=== PATIENT | male | born 1990 | race Caucasian/White ===

== ENCOUNTER 2018-02-28 14:43 | Inpatient (IN) | payer MEDICAID, OTHER, SELFPAY ==
[~2018-02-28] VITALS: Ht 177.8 cm; Wt 62.5 kg
[2018-02-28] MEDS ORDERED: REME15TA PO (15:34)
[2018-02-28] MEDS ORDERED: FAMO1TAB25 PO (15:34)
[2018-02-28] MEDS ORDERED: NEUR300C PO (15:34)
[2018-02-28] MEDS ORDERED: BACL10TA2 PO (15:34)
[2018-02-28] MEDS ORDERED: KEPP1SOL PO (15:34)
[2018-02-28] MEDS ORDERED: METO37.5 PO (15:34)
[2018-02-28] MEDS ORDERED: PROAAER10 INH (15:34)
[2018-02-28] MEDS ORDERED: VITA1CAP2 PO (15:34)
--- NOTE | 2018-02-28 16:39 | REP ---
Clinical: Altered mental status . Comparison: None . Findings: The mediastinum and cardiac silhouette are stable and within normal limits for portable technique. The lung mims are clear without acute consolidation, effusion, or pneumothorax. Skeletal structures are intact. Impression: No acute cardiopulmonary process appreciated. Electronically Signed by Polo Tse MD 02/28/2018 04:31 P
[2018-02-28 16:48] LABS: BASO % 0.6 % (0.0-1.0); EOS # 0.1 10^3/uL (0.0-0.50); EOS % 2.1 % (0.0-3.0); HEMATOCRIT 38.5 % (42.0-52.0); HEMOGLOBIN 12.3 g/dl (13.5-17.5); LYMPH # 2.2 10^3/uL (1.5-6.5); LYMPH % 35.4 % (24.0-44.0); MEAN CORPUSCULAR HGB CONC 31.9 g/dl (32.0-36.5); MEAN CORPUSCULAR VOLUME 90.8 fl (80.0-96.0); MONO # 0.7 10^3/uL (0.0-0.8); MONO % 11.6 % (0.0-5.0); NEUTROPHILS # 3.2 10^3/uL (1.8-7.7); NEUTROPHILS % 50.1 % (36.0-66.0); PLATELET COUNT, AUTOMATED 241 10^3/uL (150-450); RED BLOOD COUNT 4.24 10^6/uL (4.30-6.10); WHITE BLOOD COUNT 6.3 10^3/uL (4.0-10.0)
--- NOTE | 2018-02-28 16:50 | REP ---
Clinical: Altered mental status. Comparison: None. 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 A very subtle communication between the large CSF collection and the fourth ventricle with a minimally hypoplastic vermis cannot be excluded. Mild generalized symmetric volume loss is appreciated. -white differentiation is maintained. No intracranial hemorrhage. No subdural or epidural collection is appreciated. The calvarium is intact. The sinuses are clear. 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 No prior examinations are available for comparison. Differential diagnosis includes Dandy-Walker variant. MRI should be considered for further evaluation if this represents a new diagnosis. Electronically Signed by Polo Tse MD 02/28/2018 04:42 P
[2018-02-28 17:15] LABS: AMPHETAMINES LEVEL URINE NEGATIVE (NEGATIVE); BARBITURATES URINE NEGATIVE (NEGATIVE); BENZODIAZEPINES URINE NEGATIVE (NEGATIVE); CANNABINOIDS URINE POSITIVE (NEGATIVE); COCAINE METABOLITE URINE NEGATIVE (NEGATIVE); METHADONE URINE NEGATIVE (NEGATIVE); OPIATES URINE NEGATIVE (NEGATIVE); PHENCYCLIDINE URINE NEGATIVE (NEGATIVE)
[2018-02-28 17:16] LABS: OSMOLALITY SERUM 303 MOSM/KG (275-295)
[2018-02-28 17:36] LABS: ACETAMINOPHEN LEVEL < 2.0 UG/ML (10.0-30.0); ALBUMIN 3.8 GM/DL (3.2-5.2); ALT/SGPT 111 U/L (12-78); BILIRUBIN,DIRECT < 0.1 MG/DL (0.0-0.2); BILIRUBIN,TOTAL 0.2 MG/DL (0.2-1.0); BLOOD UREA NITROGEN 20 MG/DL (7-18); CALCIUM LEVEL 9.2 MG/DL (8.5-10.1); CARBON DIOXIDE LEVEL 27 MEQ/L (21-32); CHLORIDE LEVEL 110 MEQ/L (98-107); CPK CREATINE PHOSPHOKINASE 118 U/L (39-308); CREATININE FOR GFR 0.65 MG/DL (0.70-1.30); GLOMERULAR FILTRATION RATE > 60.0 (>60); GLUCOSE, FASTING 92 MG/DL (70-100); MB/CK RELATIVE INDEX 2.54 (< OR =4); SALICYLATE LEVEL < 1.7 MG/DL (5.0-30.0); SODIUM LEVEL 144 MEQ/L (136-145); TOTAL PROTEIN 7.7 GM/DL (6.4-8.2); TROPONIN I < 0.02 NG/ML (< 0.10)
[2018-02-28 17:37] LABS: ETHYL ALCOHOL (ETHANOL) < 0.003 % (0.000-0.010)
[2018-02-28] MEDS ORDERED: OLANZapine ORAL DISINTEGRATING TAB 5MG PO ONE (17:45)
[2018-02-28] MEDS ORDERED: TYLE325T5 PO (20:24)
[2018-02-28] MEDS ORDERED: METO25TA4 PO (20:24)
--- NOTE | 2018-02-28 20:59 | ECGEPIP ---
Stationary ECG Study [facility] - ED Test Date: 2018-02-28 Pat Name: ANA GAITAN Department: Room: - Gender: M Behavioral Intervention Specialist: emigdio : [id number] Requested By: VERITO Rossi Order Number: [id number] Reading MD: Kimmy Suarez Measurements Intervals [place] Rate: 75 P: 53 IN: 130 QRS: 55 QRSD: 87 T: 88 QT: 350 QTc: 392 Interpretive Statements SINUS RHYTHM WITH OCCASIONAL VENTRICULAR PREMATURE COMPLEXES NONSPECIFIC T-WAVE ABNORMALITY NO PRIOR FOR COMPARISON Electronically Signed On 02-28-2018 20:59:51 EST by Kimmy Suarez
[2018-02-28] MEDS ORDERED: MIRTAZAPINE 15 MG TAB PO SCH (21:00)
[2018-02-28] MEDS ORDERED: ONDANSETRON 4MG/2ML VIAL (J2405) IV PRN (21:00)
[2018-02-28] MEDS ORDERED: IPRATROPIUM 0.5MG/ALBUTEROL 2.5MG INH SOL UD 3ML (DUONEB)(J7620) NEB PRN (21:00)
[2018-02-28] MEDS ORDERED: LORazepam 2 MG TAB PO ONE (21:15)
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
[2018-02-28] MEDS: HALOPERIDOL 5 MG/ML VIAL (J1630) IM PRN (22:11)
[2018-03-01] VITALS (7 sets, daily range): BP systolic 112–142; BP diastolic 67–79
[2018-03-01] MEDS: BACLOFEN 5MG PER 1/2 TABLET PO SCH ×4 (01:28→21:34)
[2018-03-01] MEDS: levETIRAcetam ORAL SOLUTION 500 MG/5 ML UDC PO SCH ×3 (01:28→21:34)
[2018-03-01] MEDS: METOPROLOL TART 12.5 MG PER 1/2 TAB PO SCH ×3 (01:28→21:34)
[2018-03-01] MEDS: GABAPENTIN 300 MG CAP PO SCH ×4 (01:28→21:34)
[2018-03-01 05:30] LABS: HEMATOCRIT 39.1 % (42.0-52.0); HEMOGLOBIN 12.3 g/dl (13.5-17.5); MEAN CORPUSCULAR HEMOGLOBIN 28.6 pg (27.0-33.0); MEAN CORPUSCULAR HGB CONC 31.5 g/dl (32.0-36.5); MEAN CORPUSCULAR VOLUME 90.9 fl (80.0-96.0); PLATELET COUNT, AUTOMATED 219 10^3/uL (150-450); WHITE BLOOD COUNT 5.7 10^3/uL (4.0-10.0)
[2018-03-01 05:49] LABS: BLOOD UREA NITROGEN 17 MG/DL (7-18); CALCIUM LEVEL 9.6 MG/DL (8.5-10.1); CARBON DIOXIDE LEVEL 25 MEQ/L (21-32); CHLORIDE LEVEL 107 MEQ/L (98-107); CREATININE FOR GFR 0.49 MG/DL (0.70-1.30); GLOMERULAR FILTRATION RATE > 60.0 (>60); GLUCOSE, FASTING 89 MG/DL (70-100); POTASSIUM SERUM 3.7 MEQ/L (3.5-5.1); SODIUM LEVEL 140 MEQ/L (136-145)
[2018-03-01] MEDS: FONDAPARINUX SODIUM 2.5 MG/0.5 ML SYR (J1652 PER 0.5MG) SC SCH (09:25)
[2018-03-01] MEDS: FAMOTIDINE 20 MG TAB PO SCH (10:13)
[2018-03-01] MEDS: VITAMIN D 1,000 INTERNATIONAL UNITS TABLET PO SCH (10:13)
[2018-03-01] MEDS ORDERED: SLF 3 ML SYR IV PRN (11:00)
[2018-03-01 11:15] LABS: HEPATITIS A ANTIBODY IGM NEGATIVE (NEGATIVE); HEPATITIS B CORE ANTIBODY IGM NEGATIVE (NEGATIVE); HEPATITIS B SURFACE ANTIGEN NEGATIVE (NEGATIVE); HEPATITIS C VIRUS ABY INDEX > 11.0 INDEX (<0.8)
--- NOTE | 2018-03-01 11:22 | REP ---
MR BRAIN WITHOUT CONTRAST: HISTORY: Posterior fossa cyst. COMPARISON: CT 02/28/2018. There are no areas of abnormal signal intensity in the brain. There is no intraparenchymal hemorrhage, infarct, mass or midline shift. The ventricular system and cortical sulci are dilated consistent with mild volume loss. A large arachnoid cyst is present in the posterior fossa. The cyst measures 10.6 cm in transverse by 5.3 cm in AP by 7.8 cm in cephalocaudal dimensions. There is mild mass effect on the cerebellum. The fourth ventricle is midline in position. IMPRESSION: 1. Mild volume loss. 2. Large posterior fossa arachnoid cyst. Electronically Signed by Antione Arenas MD 03/01/2018 11:39 A
[2018-03-01] MEDS: METAMUCIL (PSYLLIUM) PACKET PO SCH (12:10)
--- NOTE | 2018-03-01 13:27 | IPNPDOC ---
Date Seen The patient was seen on 03/01/18. Progress Note SUBJECTIVE: Mr Jain is very somnolent this morning, and nursing reports that while he took all of his medications overnight, he is now refusing to take any medications this morning. When asked how he is feeling, the patient only briefly wakes up and grunts. It is difficult to communicate with him at this time. It is likely that he is so somnolent due to the Haldol and Remeron he received when he was admitted for his agitation. His mother is present today and states that she has observed bizarre behaviors and excessive sleepiness while he is on Remeron and she requests to take him off of this medication. Otherwise, ROS unable to be obtained. OBJECTIVE PHYSICAL EXAMINATION: VITAL SIGNS: Please see below. GENERAL: Laying in bed sleeping, with sitter by his side, wakes up to gentle shaking, otherwise not answering questions HEENT: normocephalic, atraumatic, PERRLA CARDIOVASCULAR: RRR, no m/r/g, normal S1/S2 RESPIRATORY: clear to auscultation bilaterally ABDOMINAL: soft, +BS, no organomegaly EXTREMITIES: no clubbing/cyanosis/edema NEUROLOGICAL: Unable to do full exam; foot drop noted in L foot PSYCHOLOGICAL: Unable to assess LABORATORY DATA, IMAGING STUDIES, MICROBIOLOGY: Please see below. ASSESSMENT AND PLAN: This is a 27 YO M recently hospitalized for overdose at [facility] now seeking placement in [place] with multiple behavioral issues Plan: 1. Chronic Anoxic brain injury and bilateral foot drop: -Social service consult regarding placement -PT/OT -Sitter, fall precautions - Abnormal CT head, ER spoke with neurology as suspect no acute process likely congenital - MRI of the brain negative for any acute process - Ativan and Haldol PRN for agitation and aggression - Remeron d/c'd due to mother's request and report of his bad reaction to medication - Continue Gabapentin and Baclofen 2. Questionable seizure disorder: - Continue Keppra - Will determine whether patient needs neuro c/s or inpatient EEG. Mother reports he has not had a seizure since he was in a coma. 3. Behavioral issues - Plan to c/s Psychiatry 4. History of Anemia -Hgb stable at 12.3 -Iron studies WNL 5. Chronic transaminitis -AST and ALT mildly elevated at 43 and 111, respectively 6. History of Hepatitis C - Mild elevation on ammonia level at 37 - Pending Hepatitis panel to confirm 7. Hypertension: -Continue home Metoprolol GI PPX: Famotidine HIT, therefore DVT prophylaxis with fondaparinux DNR/DNI, verified with mother Camilo Jain [phone] VS, I&O, 24H, [place] Vital Signs/I&O Vital Signs Date Time Temp Pulse Resp B/P (MAP) Pulse Ox O2 Delivery O2 Flow Rate FiO2 03/01/18 10:12 60 119/67 03/01/18 08:00 97.5 18 100 Room Air I&O- Last 24 Hours up to 6 AM 03/01/18 05:59 Intake Total 120 ml Balance 120 ml Laboratory Data 24H LABS Laboratory Tests 2 02/28/18 16:13: Immature Granulocyte % (Auto) 0.2, White Blood Count 6.3, Red Blood Count 4.24L, Hemoglobin 12.3L, Hematocrit 38.5L, Mean Corpuscular Volume 90.8, Mean Corpuscular Hemoglobin 29.0, Mean Corpuscular Hemoglobin Concent 31.9L, Red Cell Distribution Width 13.4, Platelet Count 241, Neutrophils (%) (Auto) 50.1, Lymphocytes (%) (Auto) 35.4, Monocytes (%) (Auto) 11.6H, Eosinophils (%) (Auto) 2.1, Basophils (%) (Auto) 0.6, Neutrophils # (Auto) 3.2, Lymphocytes # (Auto) 2.2, Monocytes # (Auto) 0.7, Eosinophils # (Auto) 0.1, Basophils # (Auto) 0.0, Nucleated Red Blood Cells % (auto) 0.0, Urine Color YELLOW, Urine Appearance HAZ Y, Urine pH 6.0, Urine Specific [place] 1.023, Urine Protein NEGATIVE, Urine Glucose (UA) NEGATIVE, Urine Ketones NEGATIVE, Urine Blood NEGATIVE, Urine Nitrite NEGATIVE, Urine Bilirubin NEGATIVE, Urine Urobilinogen 2.0H, Urine Leukocyte Esterase NEGATIVE, Urine WBC (Auto) 0, Urine RBC (Auto) 0, Urine Hyaline Casts (Auto) 0, Urine Bacteria (Auto) NEGATIVE, Urine Squamous Epithelial Cells 0, Urine Amorphous Sediment SMALLH, Urine Sperm (Auto) , Anion Gap 7L, Glomerular Filtration Rate > 60.0, Osmolality 303H, Calcium Level 9.2, Aspartate Amino Transf (AST/SGOT) 43H, Alanine Aminotransferase (ALT/SGPT) 111H, Alkaline Phosphatase 53, Total Bilirubin 0.2, Direct Bilirubin < 0.1, Ammonia 37H, Total Creatine Kinase 118, Creatine Kinase MB 3.0, Creatine Kinase MB Relative Index 2.54, Troponin I < 0.02, Total Protein 7.7, Albumin 3.8, Albumin/Globulin Ratio 0.97L, Thyroid Stimulating Hormone (TSH) 1.190, Salicylates Level < 1.7L, Urine Amphetamines Screen NEGATIVE, Urine Benzodiazepines Screen NEGATIVE, Urine Opiates Screen NEGATIVE, Urine Methadone Screen NEGATIVE, Acetaminophen Level < 2.0L, Urine Barbiturates Screen NEGATIVE, Urine Phencyclidine Screen NEGATIVE, Urine Cocaine Metabolite Screen NEGATIVE, Urine Cannabinoids Screen POSITIVEH, Ethyl Alcohol Level < 0.003 02/28/18 16:48: Bedside Glucose (Misc Panel) 93 03/01/18 05:11: Nucleated Red Blood Cells % (auto) 0.0, Anion Gap 8, Glomerular Filtration Rate > 60.0, Calcium Level 9.6, Blood Urea Nitrogen 17, Creatinine 0.49L, Sodium Level 140, Potassium Level 3.7, Chloride Level 107, Carbon Dioxide Level 25, Iron Level 89, Total Iron Binding Capacity 297, Transferrin % Saturation 30.0, Ferritin 200 CBC/BMP Laboratory Tests 02/28/18 16:13 Red Blood Count 4.24 L, Mean Corpuscular Volume 90.8, Mean Corpuscular Hemoglobin 29.0, Mean Corpuscular Hemoglobin Concent 31.9 L, Red Cell Distribution Width 13.4, Neutrophils (%) (Auto) 50.1, Lymphocytes (%) (Auto) 35.4, Monocytes (%) (Auto) 11.6 H, Eosinophils (%) (Auto) 2.1, Basophils (%) (Auto) 0.6, Neutrophils # (Auto) 3.2, Lymphocytes # (Auto) 2.2, Monocytes # (Auto) 0.7, Eosinophils # (Auto) 0.1, Basophils # (Auto) 0.0 03/01/18 05:11 Red Blood Count 4.30, Mean Corpuscular Volume 90.9, Mean Corpuscular Hemoglobin 28.6, Mean Corpuscular Hemoglobin Concent 31.5 L, Red Cell Distribution Width 13.5, Calcium Level 9.6 Microbiology Microbiology 02/28/18 Blood Culture, Received Pending 02/28/18 Blood Culture, Received Pending GME ATTESTATION GME ATTESTATION My faculty preceptor for this patient encounter was physically present during the encounter and was fully available. All aspects of the patient interview, examination, medical decision making process, and medical care plan development were reviewed and approved by the faculty preceptor. The faculty preceptor is aware and concurs with the plan as stated in the body of this note and will attest to such by his/her cosignature. EDDI GRACE MD Mar 01, 2018 10:57
[2018-03-01] MEDS: SLF 3 ML SYR IV SCH ×2 (13:53→21:35)
[2018-03-02 04:00] VITALS: BP 123/81
[2018-03-02 06:00] LABS: BLOOD UREA NITROGEN 17 MG/DL (7-18); CALCIUM LEVEL 9.5 MG/DL (8.5-10.1); CARBON DIOXIDE LEVEL 27 MEQ/L (21-32); CHLORIDE LEVEL 105 MEQ/L (98-107); CREATININE FOR GFR 0.55 MG/DL (0.70-1.30); GLOMERULAR FILTRATION RATE > 60.0 (>60); GLUCOSE, FASTING 88 MG/DL (70-100); POTASSIUM SERUM 3.7 MEQ/L (3.5-5.1); SODIUM LEVEL 139 MEQ/L (136-145)
[2018-03-02] MEDS: SLF 3 ML SYR IV SCH ×3 (06:01→21:22)
[2018-03-02 08:00] VITALS: BP 107/72
[2018-03-02] MEDS: VITAMIN D 1,000 INTERNATIONAL UNITS TABLET PO SCH (08:46)
[2018-03-02] MEDS: BACLOFEN 5MG PER 1/2 TABLET PO SCH ×3 (08:46→21:21)
[2018-03-02] MEDS: GABAPENTIN 300 MG CAP PO SCH ×3 (08:47→21:21)
[2018-03-02] MEDS: FAMOTIDINE 20 MG TAB PO SCH (08:47)
[2018-03-02] MEDS: BISACODYL 5 MG TAB PO PRN (08:47)
[2018-03-02] MEDS: FONDAPARINUX SODIUM 2.5 MG/0.5 ML SYR (J1652 PER 0.5MG) SC SCH (08:47)
[2018-03-02] MEDS: levETIRAcetam ORAL SOLUTION 500 MG/5 ML UDC PO SCH (08:47)
[2018-03-02] MEDS: METAMUCIL (PSYLLIUM) PACKET PO SCH (08:47)
[2018-03-02] MEDS: METOPROLOL TART 12.5 MG PER 1/2 TAB PO SCH ×2 (08:47→21:21)
[2018-03-02 09:59] LABS: ALBUMIN 3.8 GM/DL (3.2-5.2); ALT/SGPT 128 U/L (12-78); BILIRUBIN,DIRECT < 0.1 MG/DL (0.0-0.2); BILIRUBIN,TOTAL 0.3 MG/DL (0.2-1.0); TOTAL PROTEIN 7.3 GM/DL (6.4-8.2)
[2018-03-02 12:00] VITALS: BP 122/73
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
[2018-03-02 20:00] VITALS: BP 140/81
[2018-03-02] MEDS: PHENYTOIN ER 100 MG CAP PO SCH (21:21)
[2018-03-02 21:55] VITALS: BP_SYST 103; BP_SYST 140; BP_DIAS 59; BP_DIAS 76
[2018-03-03] MEDS: SLF 3 ML SYR IV SCH ×3 (06:00→22:00)
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
[2018-03-03 07:42] LABS: HEMATOCRIT 39.7 % (42.0-52.0); HEMOGLOBIN 12.6 g/dl (13.5-17.5); MEAN CORPUSCULAR HEMOGLOBIN 28.7 pg (27.0-33.0); MEAN CORPUSCULAR HGB CONC 31.7 g/dl (32.0-36.5); MEAN CORPUSCULAR VOLUME 90.4 fl (80.0-96.0); PLATELET COUNT, AUTOMATED 209 10^3/uL (150-450); RED BLOOD COUNT 4.39 10^6/uL (4.30-6.10); WHITE BLOOD COUNT 6.5 10^3/uL (4.0-10.0)
[2018-03-03 08:00] VITALS: BP 133/76
[2018-03-03 08:07] LABS: ALBUMIN 3.9 GM/DL (3.2-5.2); ALT/SGPT 118 U/L (12-78); BILIRUBIN,TOTAL 0.3 MG/DL (0.2-1.0); BLOOD UREA NITROGEN 18 MG/DL (7-18); CALCIUM LEVEL 9.7 MG/DL (8.5-10.1); CARBON DIOXIDE LEVEL 25 MEQ/L (21-32); CHLORIDE LEVEL 109 MEQ/L (98-107); CREATININE FOR GFR 0.55 MG/DL (0.70-1.30); GLOMERULAR FILTRATION RATE > 60.0 (>60); GLUCOSE, FASTING 90 MG/DL (70-100); POTASSIUM SERUM 4.2 MEQ/L (3.5-5.1); SODIUM LEVEL 142 MEQ/L (136-145); TOTAL PROTEIN 7.9 GM/DL (6.4-8.2)
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
[2018-03-03] MEDS: FONDAPARINUX SODIUM 2.5 MG/0.5 ML SYR (J1652 PER 0.5MG) SC SCH (08:21)
[2018-03-03] MEDS: FAMOTIDINE 20 MG TAB PO SCH (08:21)
[2018-03-03] MEDS: GABAPENTIN 300 MG CAP PO SCH ×3 (08:21→21:29)
[2018-03-03] MEDS: METAMUCIL (PSYLLIUM) PACKET PO SCH (08:21)
[2018-03-03] MEDS: BACLOFEN 5MG PER 1/2 TABLET PO SCH ×3 (08:24→21:32)
[2018-03-03] MEDS: METOPROLOL TART 12.5 MG PER 1/2 TAB PO SCH ×2 (08:24→21:32)
[2018-03-03] MEDS: VITAMIN D 1,000 INTERNATIONAL UNITS TABLET PO SCH (08:24)
[2018-03-03] MEDS ORDERED: MOM 30ML SUSPENSION UDC PO PRN (08:30)
[2018-03-03] MEDS: PHENYTOIN ER 100 MG CAP PO SCH (21:33)
[2018-03-03 22:00] VITALS: BP 142/80
[2018-03-04] MEDS: SLF 3 ML SYR IV SCH ×3 (05:16→22:00)
[2018-03-04 06:00] VITALS: BP 110/82
[2018-03-04] MEDS: VITAMIN D 1,000 INTERNATIONAL UNITS TABLET PO SCH ×2 (08:51→09:00)
[2018-03-04] MEDS: BACLOFEN 5MG PER 1/2 TABLET PO SCH ×4 (08:51→20:52)
[2018-03-04] MEDS: GABAPENTIN 300 MG CAP PO SCH ×4 (08:51→20:53)
[2018-03-04] MEDS: FAMOTIDINE 20 MG TAB PO SCH (08:51)
[2018-03-04] MEDS: METAMUCIL (PSYLLIUM) PACKET PO SCH ×2 (08:52→09:00)
[2018-03-04] MEDS: METOPROLOL TART 12.5 MG PER 1/2 TAB PO SCH ×3 (08:52→20:52)
[2018-03-04] MEDS: FONDAPARINUX SODIUM 2.5 MG/0.5 ML SYR (J1652 PER 0.5MG) SC SCH ×2 (08:52→09:00)
[2018-03-04] MEDS: BISACODYL 5 MG TAB PO PRN (08:52)
[2018-03-04 09:10] LABS: HEMATOCRIT 37.8 % (42.0-52.0); HEMOGLOBIN 12.1 g/dl (13.5-17.5); MEAN CORPUSCULAR HEMOGLOBIN 29.2 pg (27.0-33.0); MEAN CORPUSCULAR VOLUME 91.1 fl (80.0-96.0); PLATELET COUNT, AUTOMATED 214 10^3/uL (150-450); RED BLOOD COUNT 4.15 10^6/uL (4.30-6.10); WHITE BLOOD COUNT 5.5 10^3/uL (4.0-10.0)
[2018-03-04 09:23] LABS: BLOOD UREA NITROGEN 15 MG/DL (7-18); CALCIUM LEVEL 9.7 MG/DL (8.5-10.1); CARBON DIOXIDE LEVEL 28 MEQ/L (21-32); CHLORIDE LEVEL 105 MEQ/L (98-107); CREATININE FOR GFR 0.51 MG/DL (0.70-1.30); GLOMERULAR FILTRATION RATE > 60.0 (>60); GLUCOSE, FASTING 84 MG/DL (70-100); POTASSIUM SERUM 3.7 MEQ/L (3.5-5.1); SODIUM LEVEL 138 MEQ/L (136-145)
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
[2018-03-04 14:00] VITALS: BP 108/75
[2018-03-04] MEDS: CitaloPRAM (CeleXA) 10 MG TABLET PO SCH (20:52)
[2018-03-04] MEDS: PHENYTOIN ER 100 MG CAP PO SCH (20:53)
[2018-03-04] MEDS: zolPIDEM TARTRATE 5 MG TAB PO SCH (20:53)
[2018-03-04 22:00] VITALS: BP 131/69
[2018-03-05] MEDS: SLF 3 ML SYR IV SCH ×3 (05:18→22:00)
[2018-03-05 06:00] VITALS: BP 119/71
[2018-03-05] MEDS: FONDAPARINUX SODIUM 2.5 MG/0.5 ML SYR (J1652 PER 0.5MG) SC SCH (09:43)
[2018-03-05] MEDS: METAMUCIL (PSYLLIUM) PACKET PO SCH (09:44)
[2018-03-05] MEDS: METOPROLOL TART 12.5 MG PER 1/2 TAB PO SCH ×2 (09:45→20:59)
[2018-03-05] MEDS: VITAMIN D 1,000 INTERNATIONAL UNITS TABLET PO SCH (09:46)
[2018-03-05] MEDS: BACLOFEN 5MG PER 1/2 TABLET PO SCH ×3 (09:46→20:59)
[2018-03-05] MEDS: FAMOTIDINE 20 MG TAB PO SCH (09:47)
[2018-03-05] MEDS: GABAPENTIN 300 MG CAP PO SCH ×3 (09:47→21:00)
[2018-03-05] MEDS: ACETAMINOPHEN TAB 650MG DOSE (2X325MG) PO PRN (13:53)
[2018-03-05] MEDS: BISACODYL 10 MG SUPP PR PRN (17:58)
[2018-03-05] MEDS: PHENYTOIN ER 100 MG CAP PO SCH (20:59)
[2018-03-05] MEDS: CitaloPRAM (CeleXA) 10 MG TABLET PO SCH (20:59)
[2018-03-05] MEDS: zolPIDEM TARTRATE 5 MG TAB PO SCH (21:00)
[2018-03-05 22:00] VITALS: BP 115/71
[2018-03-06] MEDS: SLF 3 ML SYR IV SCH ×3 (03:21→22:00)
[2018-03-06] MEDS: LORazepam 2 MG/ML VIAL (J2060) IM PRN (05:25)
[2018-03-06] MEDS: HALOPERIDOL 5 MG/ML VIAL (J1630) IM PRN (05:25)
[2018-03-06 06:00] VITALS: BP 125/63
[2018-03-06] MEDS: METOPROLOL TART 12.5 MG PER 1/2 TAB PO SCH ×3 (11:57→21:49)
[2018-03-06] MEDS: FAMOTIDINE 20 MG TAB PO SCH (11:57)
[2018-03-06] MEDS: VITAMIN D 1,000 INTERNATIONAL UNITS TABLET PO SCH (11:57)
[2018-03-06] MEDS: GABAPENTIN 300 MG CAP PO SCH ×4 (11:57→21:49)
[2018-03-06] MEDS: FONDAPARINUX SODIUM 2.5 MG/0.5 ML SYR (J1652 PER 0.5MG) SC SCH (11:58)
[2018-03-06] MEDS: METAMUCIL (PSYLLIUM) PACKET PO SCH (11:58)
[2018-03-06] MEDS: BACLOFEN 5MG PER 1/2 TABLET PO SCH ×4 (11:58→21:48)
[2018-03-06 14:00] VITALS: BP 120/76
[2018-03-06] MEDS: zolPIDEM TARTRATE 5 MG TAB PO SCH ×2 (21:00→21:49)
[2018-03-06] MEDS: CitaloPRAM (CeleXA) 20 MG TAB PO SCH ×2 (21:00→21:49)
[2018-03-06] MEDS: PHENYTOIN ER 100 MG CAP PO SCH ×2 (21:00→21:48)
[2018-03-07 06:00] VITALS: BP 120/70
[2018-03-07] MEDS: METOPROLOL TART 12.5 MG PER 1/2 TAB PO SCH ×2 (08:55→21:00)
[2018-03-07] MEDS: VITAMIN D 1,000 INTERNATIONAL UNITS TABLET PO SCH (08:55)
[2018-03-07] MEDS: BACLOFEN 5MG PER 1/2 TABLET PO SCH ×3 (08:56→21:00)
[2018-03-07] MEDS: GABAPENTIN 300 MG CAP PO SCH ×3 (08:56→21:00)
[2018-03-07] MEDS: FAMOTIDINE 20 MG TAB PO SCH (08:56)
[2018-03-07] MEDS: FONDAPARINUX SODIUM 2.5 MG/0.5 ML SYR (J1652 PER 0.5MG) SC SCH (08:57)
[2018-03-07] MEDS: ACETAMINOPHEN TAB 650MG DOSE (2X325MG) PO PRN (08:57)
[2018-03-07] MEDS: METAMUCIL (PSYLLIUM) PACKET PO SCH (08:57)
[2018-03-07 09:00] VITALS: BP 125/28
[2018-03-07] MEDS: PHENYTOIN ER 100 MG CAP PO SCH (21:00)
[2018-03-07] MEDS: CitaloPRAM (CeleXA) 20 MG TAB PO SCH (21:00)
[2018-03-07] MEDS: zolPIDEM TARTRATE 5 MG TAB PO SCH (21:00)
[2018-03-08 06:00] VITALS: BP 112/80
[2018-03-08 08:26] LABS: HEMATOCRIT 35.5 % (42.0-52.0); HEMOGLOBIN 11.7 g/dl (13.5-17.5); MEAN CORPUSCULAR VOLUME 88.1 fl (80.0-96.0); PLATELET COUNT, AUTOMATED 234 10^3/uL (150-450); RED BLOOD COUNT 4.03 10^6/uL (4.30-6.10); WHITE BLOOD COUNT 5.8 10^3/uL (4.0-10.0)
[2018-03-08 08:33] LABS: BLOOD UREA NITROGEN 11 MG/DL (7-18); CALCIUM LEVEL 9.6 MG/DL (8.5-10.1); CARBON DIOXIDE LEVEL 26 MEQ/L (21-32); CHLORIDE LEVEL 106 MEQ/L (98-107); CREATININE FOR GFR 0.45 MG/DL (0.70-1.30); GLOMERULAR FILTRATION RATE > 60.0 (>60); GLUCOSE, FASTING 86 MG/DL (70-100); POTASSIUM SERUM 3.6 MEQ/L (3.5-5.1); SODIUM LEVEL 139 MEQ/L (136-145)
[2018-03-08] MEDS: VITAMIN D 1,000 INTERNATIONAL UNITS TABLET PO SCH (09:21)
[2018-03-08] MEDS: METAMUCIL (PSYLLIUM) PACKET PO SCH (09:21)
[2018-03-08] MEDS: METOPROLOL TART 12.5 MG PER 1/2 TAB PO SCH ×2 (09:21→22:14)
[2018-03-08] MEDS: GABAPENTIN 300 MG CAP PO SCH ×3 (09:21→22:14)
[2018-03-08] MEDS: BACLOFEN 5MG PER 1/2 TABLET PO SCH ×3 (09:21→22:14)
[2018-03-08] MEDS: FONDAPARINUX SODIUM 2.5 MG/0.5 ML SYR (J1652 PER 0.5MG) SC SCH (09:21)
[2018-03-08] MEDS: FAMOTIDINE 20 MG TAB PO SCH (09:21)
[2018-03-08] MEDS: PHENYTOIN ER 100 MG CAP PO SCH (22:13)
[2018-03-08] MEDS: CitaloPRAM (CeleXA) 20 MG TAB PO SCH (22:14)
[2018-03-08] MEDS: zolPIDEM TARTRATE 5 MG TAB PO SCH (22:14)
[2018-03-09 06:00] VITALS: BP 119/78
[2018-03-09] MEDS: FAMOTIDINE 20 MG TAB PO SCH (08:43)
[2018-03-09] MEDS: BACLOFEN 5MG PER 1/2 TABLET PO SCH ×3 (08:43→20:53)
[2018-03-09] MEDS: METOPROLOL TART 12.5 MG PER 1/2 TAB PO SCH ×2 (08:43→20:54)
[2018-03-09] MEDS: GABAPENTIN 300 MG CAP PO SCH ×3 (08:43→20:53)
[2018-03-09] MEDS: VITAMIN D 1,000 INTERNATIONAL UNITS TABLET PO SCH (08:43)
[2018-03-09] MEDS: METAMUCIL (PSYLLIUM) PACKET PO SCH (08:43)
[2018-03-09] MEDS: FONDAPARINUX SODIUM 2.5 MG/0.5 ML SYR (J1652 PER 0.5MG) SC SCH (08:44)
[2018-03-09] MEDS: LORazepam 2 MG/ML VIAL (J2060) IM PRN (11:45)
[2018-03-09] MEDS: HALOPERIDOL 5 MG/ML VIAL (J1630) IM PRN (11:45)
[2018-03-09] MEDS: PHENYTOIN ER 100 MG CAP PO SCH (20:53)
[2018-03-09] MEDS: CitaloPRAM (CeleXA) 20 MG TAB PO SCH (20:54)
[2018-03-09] MEDS: zolPIDEM TARTRATE 5 MG TAB PO SCH (20:54)
[2018-03-09 22:00] VITALS: BP 109/73
[2018-03-10 06:00] VITALS: BP 112/55
[2018-03-10] MEDS: VITAMIN D 1,000 INTERNATIONAL UNITS TABLET PO SCH (09:04)
[2018-03-10] MEDS: METAMUCIL (PSYLLIUM) PACKET PO SCH (09:04)
[2018-03-10] MEDS: BACLOFEN 5MG PER 1/2 TABLET PO SCH ×3 (09:04→20:42)
[2018-03-10] MEDS: GABAPENTIN 300 MG CAP PO SCH ×3 (09:04→20:43)
[2018-03-10] MEDS: FAMOTIDINE 20 MG TAB PO SCH (09:04)
[2018-03-10] MEDS: FONDAPARINUX SODIUM 2.5 MG/0.5 ML SYR (J1652 PER 0.5MG) SC SCH (09:05)
[2018-03-10] MEDS: METOPROLOL TART 12.5 MG PER 1/2 TAB PO SCH ×2 (09:05→20:42)
[2018-03-10] MEDS: ACETAMINOPHEN TAB 650MG DOSE (2X325MG) PO PRN (10:20)
[2018-03-10] MEDS: CitaloPRAM (CeleXA) 20 MG TAB PO SCH (20:42)
[2018-03-10] MEDS: PHENYTOIN ER 100 MG CAP PO SCH (20:43)
[2018-03-10] MEDS: zolPIDEM TARTRATE 5 MG TAB PO SCH (20:43)
[2018-03-10 22:00] VITALS: BP 134/74
[2018-03-11 07:06] LABS: HEMOGLOBIN 12.3 g/dl (13.5-17.5); MEAN CORPUSCULAR HEMOGLOBIN 28.9 pg (27.0-33.0); MEAN CORPUSCULAR HGB CONC 32.4 g/dl (32.0-36.5); MEAN CORPUSCULAR VOLUME 89.2 fl (80.0-96.0); PLATELET COUNT, AUTOMATED 256 10^3/uL (150-450); RED BLOOD COUNT 4.26 10^6/uL (4.30-6.10); WHITE BLOOD COUNT 8.1 10^3/uL (4.0-10.0)
[2018-03-11 07:25] LABS: BLOOD UREA NITROGEN 16 MG/DL (7-18); CALCIUM LEVEL 9.3 MG/DL (8.5-10.1); CARBON DIOXIDE LEVEL 25 MEQ/L (21-32); CHLORIDE LEVEL 107 MEQ/L (98-107); CREATININE FOR GFR 0.41 MG/DL (0.70-1.30); GLOMERULAR FILTRATION RATE > 60.0 (>60); GLUCOSE, FASTING 81 MG/DL (70-100); POTASSIUM SERUM 3.6 MEQ/L (3.5-5.1); SODIUM LEVEL 141 MEQ/L (136-145)
[2018-03-11] MEDS: METAMUCIL (PSYLLIUM) PACKET PO SCH (09:15)
[2018-03-11] MEDS: FONDAPARINUX SODIUM 2.5 MG/0.5 ML SYR (J1652 PER 0.5MG) SC SCH (09:15)
[2018-03-11] MEDS: VITAMIN D 1,000 INTERNATIONAL UNITS TABLET PO SCH (09:16)
[2018-03-11] MEDS: FAMOTIDINE 20 MG TAB PO SCH (09:17)
[2018-03-11] MEDS: GABAPENTIN 300 MG CAP PO SCH ×3 (09:17→20:50)
[2018-03-11] MEDS: METOPROLOL TART 12.5 MG PER 1/2 TAB PO SCH ×2 (09:18→20:48)
[2018-03-11] MEDS: BACLOFEN 5MG PER 1/2 TABLET PO SCH ×3 (09:18→20:49)
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
[2018-03-11 14:00] VITALS: BP 122/77
[2018-03-11 14:26] LABS: ALBUMIN 3.9 GM/DL (3.2-5.2); ALT/SGPT 59 U/L (12-78); BILIRUBIN,DIRECT < 0.1 MG/DL (0.0-0.2); BILIRUBIN,TOTAL 0.2 MG/DL (0.2-1.0); TOTAL PROTEIN 7.8 GM/DL (6.4-8.2)
[2018-03-11] MEDS: ACETAMINOPHEN TAB 650MG DOSE (2X325MG) PO PRN (20:49)
[2018-03-11] MEDS: zolPIDEM TARTRATE 5 MG TAB PO SCH (20:49)
[2018-03-11] MEDS: PHENYTOIN ER 100 MG CAP PO SCH (20:50)
[2018-03-11] MEDS: CitaloPRAM (CeleXA) 20 MG TAB PO SCH (20:50)
[2018-03-11 22:00] VITALS: BP 130/75
[2018-03-12 00:29] LABS: PHENYTOIN,FREE None Detected ug/mL (1.0-2.0); PHENYTOIN,TOTAL 2.7 ug/mL (10.0-20.0)
[2018-03-12 06:00] VITALS: BP 126/70
[2018-03-12] MEDS: METAMUCIL (PSYLLIUM) PACKET PO SCH (12:22)
[2018-03-12] MEDS: FONDAPARINUX SODIUM 2.5 MG/0.5 ML SYR (J1652 PER 0.5MG) SC SCH (12:23)
[2018-03-12] MEDS: VITAMIN D 1,000 INTERNATIONAL UNITS TABLET PO SCH (12:24)
[2018-03-12] MEDS: BACLOFEN 5MG PER 1/2 TABLET PO SCH ×3 (12:24→22:09)
[2018-03-12] MEDS: GABAPENTIN 300 MG CAP PO SCH ×3 (12:26→22:10)
[2018-03-12] MEDS: METOPROLOL TART 12.5 MG PER 1/2 TAB PO SCH ×2 (12:26→22:09)
[2018-03-12] MEDS: FAMOTIDINE 20 MG TAB PO SCH (12:26)
[2018-03-12] MEDS: zolPIDEM TARTRATE 5 MG TAB PO SCH (22:09)
[2018-03-12] MEDS: CitaloPRAM (CeleXA) 20 MG TAB PO SCH (22:10)
[2018-03-12] MEDS: PHENYTOIN ER 100 MG CAP PO SCH (22:10)
[2018-03-13 06:00] VITALS: BP 112/75
[2018-03-13] MEDS: GABAPENTIN 300 MG CAP PO SCH ×4 (09:00→21:14)
[2018-03-13] MEDS: FONDAPARINUX SODIUM 2.5 MG/0.5 ML SYR (J1652 PER 0.5MG) SC SCH (09:00)
[2018-03-13] MEDS: VITAMIN D 1,000 INTERNATIONAL UNITS TABLET PO SCH (11:33)
[2018-03-13] MEDS: FAMOTIDINE 20 MG TAB PO SCH (11:33)
[2018-03-13] MEDS: METAMUCIL (PSYLLIUM) PACKET PO SCH (11:34)
[2018-03-13] MEDS: BACLOFEN 5MG PER 1/2 TABLET PO SCH ×4 (11:34→21:14)
[2018-03-13] MEDS: METOPROLOL TART 12.5 MG PER 1/2 TAB PO SCH ×2 (11:35→21:00)
[2018-03-13] MEDS: CitaloPRAM (CeleXA) 20 MG TAB PO SCH ×2 (21:00→21:14)
[2018-03-13] MEDS: zolPIDEM TARTRATE 5 MG TAB PO SCH ×2 (21:00→21:14)
[2018-03-13] MEDS: PHENYTOIN ER 100 MG CAP PO SCH ×2 (21:00→21:13)
[2018-03-14 06:00] VITALS: BP 125/75
[2018-03-14] MEDS: METOPROLOL TART 12.5 MG PER 1/2 TAB PO SCH ×2 (08:45→21:33)
[2018-03-14] MEDS: BACLOFEN 5MG PER 1/2 TABLET PO SCH ×3 (08:45→21:33)
[2018-03-14] MEDS: METAMUCIL (PSYLLIUM) PACKET PO SCH (08:45)
[2018-03-14] MEDS: GABAPENTIN 300 MG CAP PO SCH ×3 (08:45→21:33)
[2018-03-14] MEDS: ACETAMINOPHEN TAB 650MG DOSE (2X325MG) PO PRN (08:45)
[2018-03-14] MEDS: VITAMIN D 1,000 INTERNATIONAL UNITS TABLET PO SCH (08:45)
[2018-03-14] MEDS: FONDAPARINUX SODIUM 2.5 MG/0.5 ML SYR (J1652 PER 0.5MG) SC SCH (08:45)
[2018-03-14] MEDS: FAMOTIDINE 20 MG TAB PO SCH (08:45)
[2018-03-14] MEDS: PHENYTOIN ER 100 MG CAP PO SCH (21:33)
[2018-03-14] MEDS: CitaloPRAM (CeleXA) 20 MG TAB PO SCH (21:33)
[2018-03-14] MEDS: zolPIDEM TARTRATE 5 MG TAB PO SCH (21:33)
[2018-03-15] MEDS: LORazepam 2 MG/ML VIAL (J2060) IM PRN (05:46)
[2018-03-15] MEDS: HALOPERIDOL 5 MG/ML VIAL (J1630) IM PRN (05:46)
[2018-03-15 08:41] LABS: HEMATOCRIT 41.1 % (42.0-52.0); HEMOGLOBIN 13.2 g/dl (13.5-17.5); MEAN CORPUSCULAR HEMOGLOBIN 29.5 pg (27.0-33.0); MEAN CORPUSCULAR HGB CONC 32.1 g/dl (32.0-36.5); MEAN CORPUSCULAR VOLUME 91.7 fl (80.0-96.0); PLATELET COUNT, AUTOMATED 288 10^3/uL (150-450); RED BLOOD COUNT 4.48 10^6/uL (4.30-6.10); WHITE BLOOD COUNT 6.3 10^3/uL (4.0-10.0)
[2018-03-15 08:59] LABS: BLOOD UREA NITROGEN 20 MG/DL (7-18); CARBON DIOXIDE LEVEL 30 MEQ/L (21-32); CHLORIDE LEVEL 106 MEQ/L (98-107); CREATININE FOR GFR 0.46 MG/DL (0.70-1.30); GLOMERULAR FILTRATION RATE > 60.0 (>60); GLUCOSE, FASTING 79 MG/DL (70-100); POTASSIUM SERUM 4.3 MEQ/L (3.5-5.1); SODIUM LEVEL 142 MEQ/L (136-145)
[2018-03-15] MEDS: METOPROLOL TART 12.5 MG PER 1/2 TAB PO SCH ×2 (10:04→20:49)
[2018-03-15] MEDS: METAMUCIL (PSYLLIUM) PACKET PO SCH (10:04)
[2018-03-15] MEDS: FONDAPARINUX SODIUM 2.5 MG/0.5 ML SYR (J1652 PER 0.5MG) SC SCH (10:04)
[2018-03-15] MEDS: FAMOTIDINE 20 MG TAB PO SCH (10:05)
[2018-03-15] MEDS: GABAPENTIN 300 MG CAP PO SCH ×3 (10:05→20:48)
[2018-03-15] MEDS: VITAMIN D 1,000 INTERNATIONAL UNITS TABLET PO SCH (10:05)
[2018-03-15] MEDS: BACLOFEN 5MG PER 1/2 TABLET PO SCH ×3 (10:05→20:49)
[2018-03-15] MEDS: CitaloPRAM (CeleXA) 20 MG TAB PO SCH (20:47)
[2018-03-15] MEDS: PHENYTOIN ER 100 MG CAP PO SCH (20:48)
[2018-03-15] MEDS: RAMELTEON 8 MG TAB (ROZEREM) PO SCH (20:48)
[2018-03-16 06:00] VITALS: BP 127/76
[2018-03-16] MEDS: VITAMIN D 1,000 INTERNATIONAL UNITS TABLET PO SCH (09:11)
[2018-03-16] MEDS: METAMUCIL (PSYLLIUM) PACKET PO SCH (09:11)
[2018-03-16] MEDS: BACLOFEN 5MG PER 1/2 TABLET PO SCH ×3 (09:11→21:53)
[2018-03-16] MEDS: FAMOTIDINE 20 MG TAB PO SCH (09:11)
[2018-03-16] MEDS: FONDAPARINUX SODIUM 2.5 MG/0.5 ML SYR (J1652 PER 0.5MG) SC SCH (09:11)
[2018-03-16] MEDS: METOPROLOL TART 12.5 MG PER 1/2 TAB PO SCH ×2 (09:11→21:56)
[2018-03-16] MEDS: GABAPENTIN 300 MG CAP PO SCH ×3 (09:11→21:53)
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
[2018-03-16] MEDS: RAMELTEON 8 MG TAB (ROZEREM) PO SCH (21:53)
[2018-03-16] MEDS: PHENYTOIN ER 100 MG CAP PO SCH (21:53)
[2018-03-16] MEDS: CitaloPRAM (CeleXA) 20 MG TAB PO SCH (21:53)
[2018-03-17] MEDS: HALOPERIDOL 5 MG/ML VIAL (J1630) IM PRN (04:53)
[2018-03-17] MEDS: LORazepam 2 MG/ML VIAL (J2060) IM PRN (04:53)
[2018-03-17 06:00] VITALS: BP 118/58
[2018-03-17 11:37] VITALS: BP 114/68
[2018-03-17] MEDS: FAMOTIDINE 20 MG TAB PO SCH (11:38)
[2018-03-17] MEDS: GABAPENTIN 300 MG CAP PO SCH ×3 (11:38→20:31)
[2018-03-17] MEDS: METAMUCIL (PSYLLIUM) PACKET PO SCH (11:38)
[2018-03-17] MEDS: BACLOFEN 5MG PER 1/2 TABLET PO SCH ×3 (11:39→20:30)
[2018-03-17] MEDS: FONDAPARINUX SODIUM 2.5 MG/0.5 ML SYR (J1652 PER 0.5MG) SC SCH (11:39)
[2018-03-17] MEDS: METOPROLOL TART 12.5 MG PER 1/2 TAB PO SCH ×2 (11:39→20:30)
[2018-03-17] MEDS: VITAMIN D 1,000 INTERNATIONAL UNITS TABLET PO SCH (11:39)
[2018-03-17] MEDS: CitaloPRAM (CeleXA) 20 MG TAB PO SCH (20:29)
[2018-03-17] MEDS: PHENYTOIN ER 100 MG CAP PO SCH (20:31)
[2018-03-17] MEDS: ACETAMINOPHEN TAB 650MG DOSE (2X325MG) PO PRN (20:31)
[2018-03-17] MEDS: RAMELTEON 8 MG TAB (ROZEREM) PO SCH (20:31)
[2018-03-18 06:00] VITALS: BP 118/74
[2018-03-18 08:18] LABS: HEMATOCRIT 39.3 % (42.0-52.0); HEMOGLOBIN 12.5 g/dl (13.5-17.5); MEAN CORPUSCULAR HEMOGLOBIN 28.9 pg (27.0-33.0); MEAN CORPUSCULAR HGB CONC 31.8 g/dl (32.0-36.5); PLATELET COUNT, AUTOMATED 249 10^3/uL (150-450); RED BLOOD COUNT 4.32 10^6/uL (4.30-6.10); WHITE BLOOD COUNT 5.5 10^3/uL (4.0-10.0)
[2018-03-18] MEDS: METAMUCIL (PSYLLIUM) PACKET PO SCH (08:37)
[2018-03-18] MEDS: ACETAMINOPHEN TAB 650MG DOSE (2X325MG) PO PRN (08:38)
[2018-03-18] MEDS: FAMOTIDINE 20 MG TAB PO SCH (08:38)
[2018-03-18] MEDS: BACLOFEN 5MG PER 1/2 TABLET PO SCH ×3 (08:38→21:36)
[2018-03-18] MEDS: VITAMIN D 1,000 INTERNATIONAL UNITS TABLET PO SCH (08:38)
[2018-03-18] MEDS: METOPROLOL TART 12.5 MG PER 1/2 TAB PO SCH ×2 (08:38→21:37)
[2018-03-18] MEDS: FONDAPARINUX SODIUM 2.5 MG/0.5 ML SYR (J1652 PER 0.5MG) SC SCH (08:39)
[2018-03-18] MEDS: GABAPENTIN 300 MG CAP PO SCH ×3 (08:39→21:36)
[2018-03-18 09:46] LABS: BLOOD UREA NITROGEN 19 MG/DL (7-18); CALCIUM LEVEL 9.5 MG/DL (8.5-10.1); CARBON DIOXIDE LEVEL 29 MEQ/L (21-32); CHLORIDE LEVEL 105 MEQ/L (98-107); CREATININE FOR GFR 0.52 MG/DL (0.70-1.30); GLOMERULAR FILTRATION RATE > 60.0 (>60); GLUCOSE, FASTING 80 MG/DL (70-100); POTASSIUM SERUM 4.1 MEQ/L (3.5-5.1); SODIUM LEVEL 141 MEQ/L (136-145)
[2018-03-18] MEDS: CitaloPRAM (CeleXA) 20 MG TAB PO SCH (21:36)
[2018-03-18] MEDS: PHENYTOIN ER 100 MG CAP PO SCH (21:36)
[2018-03-18] MEDS: RAMELTEON 8 MG TAB (ROZEREM) PO SCH (21:36)
[2018-03-18] MEDS: BISACODYL 5 MG TAB PO PRN (21:36)
[2018-03-19 06:00] VITALS: BP 111/68
[2018-03-19] MEDS: METOPROLOL TART 12.5 MG PER 1/2 TAB PO SCH ×2 (09:15→21:47)
[2018-03-19] MEDS: FAMOTIDINE 20 MG TAB PO SCH (09:15)
[2018-03-19] MEDS: METAMUCIL (PSYLLIUM) PACKET PO SCH (09:15)
[2018-03-19] MEDS: BACLOFEN 5MG PER 1/2 TABLET PO SCH ×3 (09:15→21:46)
[2018-03-19] MEDS: VITAMIN D 1,000 INTERNATIONAL UNITS TABLET PO SCH (09:16)
[2018-03-19] MEDS: FONDAPARINUX SODIUM 2.5 MG/0.5 ML SYR (J1652 PER 0.5MG) SC SCH (09:16)
[2018-03-19] MEDS: GABAPENTIN 300 MG CAP PO SCH ×3 (09:16→21:47)
[2018-03-19] MEDS: CitaloPRAM (CeleXA) 20 MG TAB PO SCH (21:46)
[2018-03-19] MEDS: RAMELTEON 8 MG TAB (ROZEREM) PO SCH (21:47)
[2018-03-19] MEDS: PHENYTOIN ER 100 MG CAP PO SCH (21:47)
[2018-03-20 06:00] VITALS: BP 124/59
[2018-03-20] MEDS: METAMUCIL (PSYLLIUM) PACKET PO SCH (07:51)
[2018-03-20] MEDS: GABAPENTIN 300 MG CAP PO SCH ×3 (07:52→20:36)
[2018-03-20] MEDS: FAMOTIDINE 20 MG TAB PO SCH (07:52)
[2018-03-20] MEDS: BACLOFEN 5MG PER 1/2 TABLET PO SCH ×3 (07:52→20:37)
[2018-03-20] MEDS: VITAMIN D 1,000 INTERNATIONAL UNITS TABLET PO SCH (07:52)
[2018-03-20] MEDS: FONDAPARINUX SODIUM 2.5 MG/0.5 ML SYR (J1652 PER 0.5MG) SC SCH (07:52)
[2018-03-20] MEDS: METOPROLOL TART 12.5 MG PER 1/2 TAB PO SCH ×2 (07:52→20:37)
[2018-03-20] MEDS: CitaloPRAM (CeleXA) 20 MG TAB PO SCH (20:36)
[2018-03-20] MEDS: RAMELTEON 8 MG TAB (ROZEREM) PO SCH (20:37)
[2018-03-20] MEDS: PHENYTOIN ER 100 MG CAP PO SCH (20:37)
[2018-03-21 06:00] VITALS: BP 119/60
[2018-03-21] MEDS: VITAMIN D 1,000 INTERNATIONAL UNITS TABLET PO SCH (09:54)
[2018-03-21] MEDS: BACLOFEN 5MG PER 1/2 TABLET PO SCH ×3 (09:54→20:04)
[2018-03-21] MEDS: METAMUCIL (PSYLLIUM) PACKET PO SCH (09:54)
[2018-03-21] MEDS: FONDAPARINUX SODIUM 2.5 MG/0.5 ML SYR (J1652 PER 0.5MG) SC SCH (09:55)
[2018-03-21] MEDS: METOPROLOL TART 12.5 MG PER 1/2 TAB PO SCH ×2 (09:55→20:05)
[2018-03-21] MEDS: FAMOTIDINE 20 MG TAB PO SCH (09:55)
[2018-03-21] MEDS: GABAPENTIN 300 MG CAP PO SCH ×3 (09:55→20:04)
[2018-03-21] MEDS: ACETAMINOPHEN TAB 650MG DOSE (2X325MG) PO PRN ×2 (10:02→20:05)
[2018-03-21] MEDS: CitaloPRAM (CeleXA) 20 MG TAB PO SCH (20:04)
[2018-03-21] MEDS: PHENYTOIN ER 100 MG CAP PO SCH (20:04)
[2018-03-21] MEDS: RAMELTEON 8 MG TAB (ROZEREM) PO SCH (20:04)
[2018-03-21 22:00] VITALS: BP 113/87
[2018-03-22 06:00] VITALS: BP 98/59
[2018-03-22 08:47] LABS: HEMATOCRIT 39.2 % (42.0-52.0); HEMOGLOBIN 12.2 g/dl (13.5-17.5); MEAN CORPUSCULAR HEMOGLOBIN 29.1 pg (27.0-33.0); MEAN CORPUSCULAR HGB CONC 31.1 g/dl (32.0-36.5); MEAN CORPUSCULAR VOLUME 93.6 fl (80.0-96.0); PLATELET COUNT, AUTOMATED 200 10^3/uL (150-450); RED BLOOD COUNT 4.19 10^6/uL (4.30-6.10); WHITE BLOOD COUNT 5.1 10^3/uL (4.0-10.0)
[2018-03-22] MEDS: ACETAMINOPHEN TAB 650MG DOSE (2X325MG) PO PRN ×2 (08:52→21:00)
[2018-03-22] MEDS: METAMUCIL (PSYLLIUM) PACKET PO SCH (08:52)
[2018-03-22] MEDS: FONDAPARINUX SODIUM 2.5 MG/0.5 ML SYR (J1652 PER 0.5MG) SC SCH (08:52)
[2018-03-22] MEDS: BACLOFEN 5MG PER 1/2 TABLET PO SCH ×3 (08:52→20:59)
[2018-03-22] MEDS: GABAPENTIN 300 MG CAP PO SCH ×3 (08:53→21:00)
[2018-03-22] MEDS: FAMOTIDINE 20 MG TAB PO SCH (08:53)
[2018-03-22] MEDS: METOPROLOL TART 12.5 MG PER 1/2 TAB PO SCH ×2 (08:53→21:00)
[2018-03-22] MEDS: VITAMIN D 1,000 INTERNATIONAL UNITS TABLET PO SCH (08:53)
[2018-03-22 09:12] LABS: BLOOD UREA NITROGEN 23 MG/DL (7-18); CARBON DIOXIDE LEVEL 25 MEQ/L (21-32); CHLORIDE LEVEL 109 MEQ/L (98-107); CREATININE FOR GFR 0.65 MG/DL (0.70-1.30); GLOMERULAR FILTRATION RATE > 60.0 (>60); GLUCOSE, FASTING 128 MG/DL (70-100); POTASSIUM SERUM 3.6 MEQ/L (3.5-5.1); SODIUM LEVEL 142 MEQ/L (136-145)
[2018-03-22] MEDS: PHENYTOIN ER 100 MG CAP PO SCH (21:00)
[2018-03-22] MEDS: CitaloPRAM (CeleXA) 20 MG TAB PO SCH (21:00)
[2018-03-22] MEDS: RAMELTEON 8 MG TAB (ROZEREM) PO SCH (21:00)
[2018-03-23 01:00] VITALS: BP 118/61
[2018-03-23 06:00] VITALS: BP 127/67
[2018-03-23] MEDS: METAMUCIL (PSYLLIUM) PACKET PO SCH (09:00)
[2018-03-23] MEDS: FONDAPARINUX SODIUM 2.5 MG/0.5 ML SYR (J1652 PER 0.5MG) SC SCH (09:31)
[2018-03-23] MEDS: VITAMIN D 1,000 INTERNATIONAL UNITS TABLET PO SCH (09:31)
[2018-03-23] MEDS: GABAPENTIN 300 MG CAP PO SCH ×3 (09:32→20:53)
[2018-03-23] MEDS: ACETAMINOPHEN TAB 650MG DOSE (2X325MG) PO PRN ×2 (09:32→20:53)
[2018-03-23] MEDS: FAMOTIDINE 20 MG TAB PO SCH (09:32)
[2018-03-23] MEDS: BACLOFEN 5MG PER 1/2 TABLET PO SCH ×3 (09:32→20:53)
[2018-03-23] MEDS: METOPROLOL TART 12.5 MG PER 1/2 TAB PO SCH ×2 (09:32→20:54)
[2018-03-23] MEDS: BISACODYL 10 MG SUPP PR PRN (15:21)
[2018-03-23] MEDS: CitaloPRAM (CeleXA) 20 MG TAB PO SCH (20:52)
[2018-03-23] MEDS: RAMELTEON 8 MG TAB (ROZEREM) PO SCH (20:53)
[2018-03-23] MEDS: PHENYTOIN ER 100 MG CAP PO SCH (20:53)
[2018-03-24 06:00] VITALS: BP 93/53
[2018-03-24] MEDS: METAMUCIL (PSYLLIUM) PACKET PO SCH (09:00)
[2018-03-24] MEDS: FONDAPARINUX SODIUM 2.5 MG/0.5 ML SYR (J1652 PER 0.5MG) SC SCH (10:13)
[2018-03-24] MEDS: FAMOTIDINE 20 MG TAB PO SCH (10:14)
[2018-03-24] MEDS: ACETAMINOPHEN TAB 650MG DOSE (2X325MG) PO PRN ×2 (10:14→22:22)
[2018-03-24] MEDS: VITAMIN D 1,000 INTERNATIONAL UNITS TABLET PO SCH (10:14)
[2018-03-24] MEDS: METOPROLOL TART 12.5 MG PER 1/2 TAB PO SCH ×2 (10:14→22:23)
[2018-03-24] MEDS: GABAPENTIN 300 MG CAP PO SCH ×3 (10:14→22:21)
[2018-03-24] MEDS: BACLOFEN 5MG PER 1/2 TABLET PO SCH ×3 (10:14→22:21)
[2018-03-24] MEDS: CitaloPRAM (CeleXA) 20 MG TAB PO SCH (22:21)
[2018-03-24] MEDS: RAMELTEON 8 MG TAB (ROZEREM) PO SCH (22:21)
[2018-03-24] MEDS: PHENYTOIN ER 100 MG CAP PO SCH (22:21)
[2018-03-25 06:00] VITALS: BP 118/74
[2018-03-25] MEDS ORDERED: HALOPERIDOL 5 MG/ML VIAL (J1630) IM PRN (09:00)
[2018-03-25] MEDS: VITAMIN D 1,000 INTERNATIONAL UNITS TABLET PO SCH (09:25)
[2018-03-25] MEDS: GABAPENTIN 300 MG CAP PO SCH ×3 (09:25→22:30)
[2018-03-25] MEDS: FAMOTIDINE 20 MG TAB PO SCH (09:25)
[2018-03-25] MEDS: METAMUCIL (PSYLLIUM) PACKET PO SCH (09:25)
[2018-03-25] MEDS: BACLOFEN 5MG PER 1/2 TABLET PO SCH ×3 (09:25→22:30)
[2018-03-25] MEDS: METOPROLOL TART 12.5 MG PER 1/2 TAB PO SCH ×2 (09:26→22:31)
[2018-03-25] MEDS: FONDAPARINUX SODIUM 2.5 MG/0.5 ML SYR (J1652 PER 0.5MG) SC SCH (09:26)
[2018-03-25] MEDS: ACETAMINOPHEN TAB 650MG DOSE (2X325MG) PO PRN ×2 (09:53→22:30)
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
[2018-03-25] MEDS: CitaloPRAM (CeleXA) 20 MG TAB PO SCH (17:06)
[2018-03-25] MEDS: PHENYTOIN ER 100 MG CAP PO SCH (22:29)
[2018-03-25] MEDS: RAMELTEON 8 MG TAB (ROZEREM) PO SCH (22:30)
[2018-03-26 06:00] VITALS: BP 121/59
[2018-03-26] MEDS: VITAMIN D 1,000 INTERNATIONAL UNITS TABLET PO SCH (08:32)
[2018-03-26] MEDS: GABAPENTIN 300 MG CAP PO SCH ×3 (08:32→21:36)
[2018-03-26] MEDS: FAMOTIDINE 20 MG TAB PO SCH (08:32)
[2018-03-26] MEDS: BACLOFEN 5MG PER 1/2 TABLET PO SCH ×3 (08:32→21:36)
[2018-03-26] MEDS: METAMUCIL (PSYLLIUM) PACKET PO SCH (08:32)
[2018-03-26] MEDS: ACETAMINOPHEN TAB 650MG DOSE (2X325MG) PO PRN ×2 (08:33→21:37)
[2018-03-26] MEDS: METOPROLOL TART 12.5 MG PER 1/2 TAB PO SCH ×2 (08:33→21:36)
[2018-03-26] MEDS: FONDAPARINUX SODIUM 2.5 MG/0.5 ML SYR (J1652 PER 0.5MG) SC SCH (08:33)
[2018-03-26] MEDS: CitaloPRAM (CeleXA) 20 MG TAB PO SCH (16:12)
[2018-03-26] MEDS: RAMELTEON 8 MG TAB (ROZEREM) PO SCH (21:36)
[2018-03-26] MEDS: PHENYTOIN ER 100 MG CAP PO SCH (21:36)
[2018-03-26] MEDS: traZODone 25MG PER 1/2 TABLET PO PRN (21:36)
[2018-03-27 06:00] VITALS: BP 130/68
[2018-03-27] MEDS: BACLOFEN 5MG PER 1/2 TABLET PO SCH ×3 (12:11→20:17)
[2018-03-27] MEDS: VITAMIN D 1,000 INTERNATIONAL UNITS TABLET PO SCH (12:11)
[2018-03-27] MEDS: FAMOTIDINE 20 MG TAB PO SCH (12:11)
[2018-03-27] MEDS: GABAPENTIN 300 MG CAP PO SCH ×3 (12:12→20:16)
[2018-03-27] MEDS: METOPROLOL TART 12.5 MG PER 1/2 TAB PO SCH ×2 (12:13→20:17)
[2018-03-27] MEDS: METAMUCIL (PSYLLIUM) PACKET PO SCH (12:14)
[2018-03-27] MEDS: FONDAPARINUX SODIUM 2.5 MG/0.5 ML SYR (J1652 PER 0.5MG) SC SCH (12:14)
[2018-03-27] MEDS: CitaloPRAM (CeleXA) 20 MG TAB PO SCH (17:49)
[2018-03-27] MEDS: traZODone 25MG PER 1/2 TABLET PO PRN (20:17)
[2018-03-27] MEDS: RAMELTEON 8 MG TAB (ROZEREM) PO SCH (20:17)
[2018-03-27] MEDS: PHENYTOIN ER 100 MG CAP PO SCH (20:17)
[2018-03-27] MEDS: ACETAMINOPHEN TAB 650MG DOSE (2X325MG) PO PRN (20:18)
[2018-03-28 06:00] VITALS: BP 116/76
[2018-03-28] MEDS: VITAMIN D 1,000 INTERNATIONAL UNITS TABLET PO SCH (09:53)
[2018-03-28] MEDS: BACLOFEN 5MG PER 1/2 TABLET PO SCH ×3 (09:53→20:37)
[2018-03-28] MEDS: FAMOTIDINE 20 MG TAB PO SCH (09:53)
[2018-03-28] MEDS: GABAPENTIN 300 MG CAP PO SCH ×3 (09:53→20:37)
[2018-03-28] MEDS: FONDAPARINUX SODIUM 2.5 MG/0.5 ML SYR (J1652 PER 0.5MG) SC SCH (09:53)
[2018-03-28] MEDS: METAMUCIL (PSYLLIUM) PACKET PO SCH (09:53)
[2018-03-28] MEDS: METOPROLOL TART 12.5 MG PER 1/2 TAB PO SCH ×2 (09:55→20:38)
[2018-03-28] MEDS: CitaloPRAM (CeleXA) 20 MG TAB PO SCH (16:09)
[2018-03-28 20:00] VITALS: BP 139/98
[2018-03-28] MEDS: PHENYTOIN ER 100 MG CAP PO SCH (20:37)
[2018-03-28] MEDS: traZODone 25MG PER 1/2 TABLET PO PRN (20:37)
[2018-03-28] MEDS: RAMELTEON 8 MG TAB (ROZEREM) PO SCH (20:37)
[2018-03-28] MEDS: ACETAMINOPHEN TAB 650MG DOSE (2X325MG) PO PRN (20:38)
[2018-03-28] MEDS: LORazepam 2 MG/ML VIAL (J2060) IM PRN (20:47)
[2018-03-29 06:00] VITALS: BP 108/68
[2018-03-29] MEDS: GABAPENTIN 300 MG CAP PO SCH ×3 (10:12→20:17)
[2018-03-29] MEDS: FAMOTIDINE 20 MG TAB PO SCH (10:12)
[2018-03-29] MEDS: VITAMIN D 1,000 INTERNATIONAL UNITS TABLET PO SCH (10:12)
[2018-03-29] MEDS: METOPROLOL TART 12.5 MG PER 1/2 TAB PO SCH ×2 (10:14→20:18)
[2018-03-29] MEDS: METAMUCIL (PSYLLIUM) PACKET PO SCH (10:14)
[2018-03-29] MEDS: FONDAPARINUX SODIUM 2.5 MG/0.5 ML SYR (J1652 PER 0.5MG) SC SCH (10:15)
[2018-03-29] MEDS: BACLOFEN 5MG PER 1/2 TABLET PO SCH ×3 (10:15→20:18)
[2018-03-29] MEDS: CitaloPRAM (CeleXA) 20 MG TAB PO SCH (16:45)
[2018-03-29] MEDS: ACETAMINOPHEN TAB 650MG DOSE (2X325MG) PO PRN (18:19)
[2018-03-29] MEDS: PHENYTOIN ER 100 MG CAP PO SCH (20:18)
[2018-03-29] MEDS: RAMELTEON 8 MG TAB (ROZEREM) PO SCH (20:18)
[2018-03-29] MEDS: traZODone 25MG PER 1/2 TABLET PO PRN (20:18)
[2018-03-29 22:00] VITALS: BP 145/80
[2018-03-30 06:00] VITALS: BP 121/60
[2018-03-30] MEDS: BACLOFEN 5MG PER 1/2 TABLET PO SCH ×3 (08:14→20:41)
[2018-03-30] MEDS: METAMUCIL (PSYLLIUM) PACKET PO SCH (08:14)
[2018-03-30] MEDS: VITAMIN D 1,000 INTERNATIONAL UNITS TABLET PO SCH (08:14)
[2018-03-30] MEDS: FAMOTIDINE 20 MG TAB PO SCH (08:15)
[2018-03-30] MEDS: GABAPENTIN 300 MG CAP PO SCH ×3 (08:15→20:43)
[2018-03-30] MEDS: METOPROLOL TART 12.5 MG PER 1/2 TAB PO SCH ×2 (08:15→20:42)
[2018-03-30] MEDS: FONDAPARINUX SODIUM 2.5 MG/0.5 ML SYR (J1652 PER 0.5MG) SC SCH (08:18)
[2018-03-30] MEDS: ACETAMINOPHEN TAB 650MG DOSE (2X325MG) PO PRN ×2 (15:05→20:42)
[2018-03-30] MEDS: CitaloPRAM (CeleXA) 20 MG TAB PO SCH (17:05)
[2018-03-30] MEDS: traZODone 25MG PER 1/2 TABLET PO PRN (20:41)
[2018-03-30] MEDS: PHENYTOIN ER 100 MG CAP PO SCH (20:42)
[2018-03-30] MEDS: RAMELTEON 8 MG TAB (ROZEREM) PO SCH (20:43)
[2018-03-31 06:00] VITALS: BP 118/56
[2018-03-31] MEDS: GABAPENTIN 300 MG CAP PO SCH ×3 (09:26→21:26)
[2018-03-31] MEDS: METAMUCIL (PSYLLIUM) PACKET PO SCH (09:26)
[2018-03-31] MEDS: FAMOTIDINE 20 MG TAB PO SCH (09:26)
[2018-03-31] MEDS: VITAMIN D 1,000 INTERNATIONAL UNITS TABLET PO SCH (09:26)
[2018-03-31] MEDS: BACLOFEN 5MG PER 1/2 TABLET PO SCH ×3 (09:26→21:26)
[2018-03-31] MEDS: METOPROLOL TART 12.5 MG PER 1/2 TAB PO SCH ×2 (09:26→21:27)
[2018-03-31] MEDS: FONDAPARINUX SODIUM 2.5 MG/0.5 ML SYR (J1652 PER 0.5MG) SC SCH (09:27)
[2018-03-31] MEDS: CitaloPRAM (CeleXA) 20 MG TAB PO SCH (16:35)
[2018-03-31 20:00] VITALS: BP 124/92
[2018-03-31] MEDS: RAMELTEON 8 MG TAB (ROZEREM) PO SCH (21:26)
[2018-03-31] MEDS: PHENYTOIN ER 100 MG CAP PO SCH (21:26)
[2018-03-31] MEDS: ACETAMINOPHEN TAB 650MG DOSE (2X325MG) PO PRN (21:27)
[2018-03-31] MEDS: traZODone 25MG PER 1/2 TABLET PO PRN (21:29)
[2018-04-01 06:00] VITALS: BP 115/58
[2018-04-01] MEDS: BACLOFEN 5MG PER 1/2 TABLET PO SCH ×3 (09:30→21:28)
[2018-04-01] MEDS: GABAPENTIN 300 MG CAP PO SCH ×3 (09:30→21:29)
[2018-04-01] MEDS: VITAMIN D 1,000 INTERNATIONAL UNITS TABLET PO SCH (09:30)
[2018-04-01] MEDS: METAMUCIL (PSYLLIUM) PACKET PO SCH (09:30)
[2018-04-01] MEDS: METOPROLOL TART 12.5 MG PER 1/2 TAB PO SCH ×2 (09:31→21:28)
[2018-04-01] MEDS: FONDAPARINUX SODIUM 2.5 MG/0.5 ML SYR (J1652 PER 0.5MG) SC SCH (09:31)
[2018-04-01] MEDS: FAMOTIDINE 20 MG TAB PO SCH (09:31)
[2018-04-01] MEDS: CitaloPRAM (CeleXA) 20 MG TAB PO SCH (18:15)
[2018-04-01] MEDS: ACETAMINOPHEN TAB 650MG DOSE (2X325MG) PO PRN (18:16)
[2018-04-01] MEDS: traZODone 25MG PER 1/2 TABLET PO PRN (21:28)
[2018-04-01] MEDS: RAMELTEON 8 MG TAB (ROZEREM) PO SCH (21:29)
[2018-04-01] MEDS: PHENYTOIN ER 100 MG CAP PO SCH (21:29)
[2018-04-02 06:00] VITALS: BP 109/52
[2018-04-02] MEDS: METAMUCIL (PSYLLIUM) PACKET PO SCH (09:00)
[2018-04-02] MEDS: FAMOTIDINE 20 MG TAB PO SCH (09:00)
[2018-04-02] MEDS: BACLOFEN 5MG PER 1/2 TABLET PO SCH ×3 (09:00→20:29)
[2018-04-02] MEDS: GABAPENTIN 300 MG CAP PO SCH ×3 (09:00→20:29)
[2018-04-02] MEDS: VITAMIN D 1,000 INTERNATIONAL UNITS TABLET PO SCH (09:00)
[2018-04-02] MEDS: FONDAPARINUX SODIUM 2.5 MG/0.5 ML SYR (J1652 PER 0.5MG) SC SCH (09:00)
[2018-04-02] MEDS: METOPROLOL TART 12.5 MG PER 1/2 TAB PO SCH ×2 (09:00→20:29)
[2018-04-02] MEDS: CitaloPRAM (CeleXA) 20 MG TAB PO SCH ×2 (16:34→16:59)
[2018-04-02] MEDS: ACETAMINOPHEN TAB 650MG DOSE (2X325MG) PO PRN (16:59)
[2018-04-02] MEDS: BISACODYL 5 MG TAB PO PRN (20:29)
[2018-04-02] MEDS: RAMELTEON 8 MG TAB (ROZEREM) PO SCH (20:29)
[2018-04-02] MEDS: traZODone 25MG PER 1/2 TABLET PO PRN (20:29)
[2018-04-02] MEDS: PHENYTOIN ER 100 MG CAP PO SCH (20:30)
[2018-04-02] MEDS: BISACODYL 10 MG SUPP PR PRN (21:32)
[2018-04-03 06:00] VITALS: BP 112/72
[2018-04-03] MEDS: BACLOFEN 5MG PER 1/2 TABLET PO SCH ×3 (09:44→20:49)
[2018-04-03] MEDS: METOPROLOL TART 12.5 MG PER 1/2 TAB PO SCH ×2 (09:44→20:49)
[2018-04-03] MEDS: FONDAPARINUX SODIUM 2.5 MG/0.5 ML SYR (J1652 PER 0.5MG) SC SCH (09:44)
[2018-04-03] MEDS: VITAMIN D 1,000 INTERNATIONAL UNITS TABLET PO SCH (09:44)
[2018-04-03] MEDS: FAMOTIDINE 20 MG TAB PO SCH (09:44)
[2018-04-03] MEDS: METAMUCIL (PSYLLIUM) PACKET PO SCH (09:44)
[2018-04-03] MEDS: GABAPENTIN 300 MG CAP PO SCH ×3 (09:44→20:49)
[2018-04-03] MEDS: CitaloPRAM (CeleXA) 20 MG TAB PO SCH (16:54)
[2018-04-03] MEDS: traZODone 25MG PER 1/2 TABLET PO PRN (20:48)
[2018-04-03] MEDS: PHENYTOIN ER 100 MG CAP PO SCH (20:48)
[2018-04-03] MEDS: RAMELTEON 8 MG TAB (ROZEREM) PO SCH (20:49)
[2018-04-03] MEDS: ACETAMINOPHEN TAB 650MG DOSE (2X325MG) PO PRN (20:50)
[2018-04-04 06:00] VITALS: BP 126/77
[2018-04-04 09:02] LABS: HEMATOCRIT 40.6 % (42.0-52.0); MEAN CORPUSCULAR HEMOGLOBIN 29.3 pg (27.0-33.0); MEAN CORPUSCULAR VOLUME 91.6 fl (80.0-96.0); PLATELET COUNT, AUTOMATED 203 10^3/uL (150-450); RED BLOOD COUNT 4.43 10^6/uL (4.30-6.10); WHITE BLOOD COUNT 5.9 10^3/uL (4.0-10.0)
[2018-04-04 10:03] LABS: ALBUMIN 3.8 GM/DL (3.2-5.2); ALT/SGPT 108 U/L (12-78); BILIRUBIN,TOTAL 0.1 MG/DL (0.2-1.0); BLOOD UREA NITROGEN 25 MG/DL (7-18); CALCIUM LEVEL 9.2 MG/DL (8.5-10.1); CARBON DIOXIDE LEVEL 24 MEQ/L (21-32); CHLORIDE LEVEL 108 MEQ/L (98-107); CREATININE FOR GFR 0.54 MG/DL (0.70-1.30); GLOMERULAR FILTRATION RATE > 60.0 (>60); GLUCOSE, FASTING 104 MG/DL (70-100); POTASSIUM SERUM 3.9 MEQ/L (3.5-5.1); SODIUM LEVEL 142 MEQ/L (136-145); TOTAL PROTEIN 7.4 GM/DL (6.4-8.2)
[2018-04-04] MEDS: METOPROLOL TART 12.5 MG PER 1/2 TAB PO SCH ×2 (10:24→21:55)
[2018-04-04] MEDS: METAMUCIL (PSYLLIUM) PACKET PO SCH (10:24)
[2018-04-04] MEDS: GABAPENTIN 300 MG CAP PO SCH ×3 (10:24→21:56)
[2018-04-04] MEDS: VITAMIN D 1,000 INTERNATIONAL UNITS TABLET PO SCH (10:24)
[2018-04-04] MEDS: BACLOFEN 5MG PER 1/2 TABLET PO SCH ×3 (10:24→21:52)
[2018-04-04] MEDS: FAMOTIDINE 20 MG TAB PO SCH (10:24)
[2018-04-04] MEDS: FONDAPARINUX SODIUM 2.5 MG/0.5 ML SYR (J1652 PER 0.5MG) SC SCH (10:25)
[2018-04-04] MEDS ORDERED: ROZE8TAB16 PO (14:09)
[2018-04-04] MEDS ORDERED: CELE20TA PO (14:09)
[2018-04-04] MEDS ORDERED: ARIP5TA PO (14:09)
[2018-04-04] MEDS ORDERED: DILA100C PO (14:09)
[2018-04-04] MEDS ORDERED: TRAZ25TA PO (14:09)
--- NOTE | 2018-04-04 14:23 | DS.PDOC ---
Discharge Summary General Date of Admission Mar 02, 2018 at 16:14 Date of Discharge 04/05/18 Attending Physician: KIRILL BARFIELD MD Specialist/Consultants Involve: RENETTA ACOSTA MD Discharge Summary PROCEDURES PERFORMED DURING STAY: None. ADMITTING/DISCHARGE DIAGNOSES: 1. Behavioral changes/agitation 2. History of anoxic brain injury due to drug overdose and, 3. Large posterior arachnoid cyst- will need outpatient follow-up with neurosurgery. 4. History of HIT- avoid heparin products 5. History of severe rhabdomyolysis requiring hemodialysis 6. Seizure disorder status post anoxic brain injury 7. History of anemia stable. Will need outpatient follow-up. 8. History of chronic hepatitis C with transaminitis will need outpatient referral to ID COMPLICATIONS/CHIEF COMPLAINT: Agitation and behavioral issues HISTORY OF PRESENT ILLNESS/HOSPITAL COURSE: This is a 27-year-old male past medical history of anoxic brain injury status post overdose, subsequent intubation, severe rhabdomyolysis, end organ damage requiring hemodialysis, status post trach and PEG and removal at [facility], history of HIT, with the extensive history of hospitalization and subacute rehabi litation or he developed behavioral issues and his mother was unable to get PT/OT due to the insurance. Patient was apparently having behavioral changes, threatening to harm his blood, intermittent hallucination and her nausea/80 breath the patient to the emergency department for further evaluation for safe placement. Mother was unable to care for her son at home. Patient has chronic bilateral foot drop and is unable to ambulate. Over the course of auscultation, patient did have imaging of his brain with notable posterior fpssa arachnoid cyst, Dr. Acosta recommends outpatient neurosurgery evaluation as needed however this is likely from and does not need any further workup at this time. Patient did have have his medications titrated, and he is currently sleeping in an appropriate regimen, with no behavioral outbursts. The patient's Keppra was changed to phenytoin as it can exacerbate behavioral conditions. Patient is hemodynamically stable and be discharged to [facility] for reha bilitation with specialization for TBI injuries. DISCHARGE MEDICATIONS: Please see below. ALLERGIES: Please see below. PHYSICAL EXAMINATION ON DISCHARGE: Vitals: (see below) General: No acute distress, laying comfortably in bed. HEENT: Moist mucous membranes. Neck: No JVD or lymphadenopathy Cardiac: RRR, No murmurs Pulm: Clear to auscultation b/l. No wheezing, rhonchi Abd: NT/ND + BS Ext: No edema or cyanosis Follows commands, moves all extremity. LABORATORY DATA: Please see below. IMAGING: MRI brain on this admission IMPRESSION: 1. Mild volume loss. 2. Large posterior fossa arachnoid cyst. PROGNOSIS: Fair to poor given her comorbidities. ACTIVITY: As tolerated. DIET: Regular diet with ensure DISCHARGE PLAN/DISPOSITION: [facility] for rehabilitation with specialization for TBI injuries DISCHARGE INSTRUCTIONS: 1. Follow-up with PCP, neurology, neurosurgery in 1-2 weeks. Return to the ED if symptoms worsen. DISCHARGE CONDITION: Stable. TIME SPENT ON DISCHARGE: Greater than 30 minutes. Vital Signs/I&Os Vital Signs Date Time Temp Pulse Resp B/P (MAP) Pulse Ox O2 Delivery O2 Flow Rate FiO2 04/04/18 10:24 65 126/77 04/04/18 06:00 98.1 16 100 Room Air I&O- Last 24 Hours up to 6 AM 04/04/18 06:00 Intake Total 1360 ml Output Total 0 ml Balance 1360 ml Laboratory Data Labs 24H Laboratory Tests 2 04/04/18 08:35: Nucleated Red Blood Cells % (auto) 0.0, Anion Gap 10, Glomerular Filtration Rate > 60.0, Blood Urea Nitrogen 25H, Creatinine 0.54L, Sodium Level 142, Potassium Level 3.9, Chloride Level 108H, Carbon Dioxide Level 24, Calcium Level 9.2, Aspartate Amino Transf (AST/SGOT) 46H, Alanine Aminotransferase (ALT/SGPT) 108H, Alkaline Phosphatase 62, Total Bilirubin 0.1L, Total Protein 7.4, Albumin 3.8, Albumin/Globulin Ratio 1.06 CBC/BMP Laboratory Tests 04/04/18 08:35 Red Blood Count 4.43, Mean Corpuscular Volume 91.6, Mean Corpuscular Hemoglobin 29.3, Mean Corpuscular Hemoglobin Concent 32.0, Red Cell Distribution Width 14.6 H, Calcium Level 9.2, Aspartate Amino Transf (AST/SGOT) 46 H, Alanine Aminotransferase (ALT/SGPT) 108 H, Alkaline Phosphatase 62, Total Bilirubin 0.1 L, Total Protein 7.4, Albumin 3.8 Discharge Medications Scheduled Aripiprazole (Aripiprazole) 5 Mg Tab, 5 MG PO DAILY@1700 Baclofen (Baclofen) 10 Mg Tab, 5 MG PO TID, (Reported) Cholecalciferol (Vitamin D-3) 1,000 Unit Cap, 5,000 UNIT PO DAILY, (Reported) Citalopram Hydrobromide (Celexa) 20 Mg Tab, 20 MG PO DAILY@1700 Famotidine (Famotidine) 10 Mg Tab, 20 MG PO DAILY, (Reported) Gabapentin (Neurontin) 300 Mg Cap, 300 MG PO TID, (Reported) Metoprolol Tartrate (Metoprolol Tartrate) 25 Mg Tab, 12.5 MG PO BID, (Reported) Phenytoin Sodium (Dilantin) 100 Mg Cap, 300 MG PO QHS Ramelteon (Rozerem) 8 Mg Tab, 8 MG PO QHS Scheduled PRN Acetaminophen (Tylenol) 325 Mg Tab, 650 MG PO Q4H PRN for PAIN, (Reported) Albuterol Sulfate (Proair Hfa) 108 Mcg/Act Aer, 2 PUFF INH Q4H PRN for SOB/WHEEZING, (Reported) Trazodone HCl (Trazodone HCl) 50 Mg Tab, 25 MG PO QHSP PRN for insomnia Allergies Coded Allergies: Tuberculin Tests (Verified Allergy, Unknown, 02/28/18) Warfarin (Verified Allergy, Unknown, 02/28/18) KIRILL BARFIELD MD Apr 04, 2018 14:23
[2018-04-04] MEDS: CitaloPRAM (CeleXA) 20 MG TAB PO SCH (16:36)
[2018-04-04] MEDS ORDERED: INFLUENZA QUADRIVALENT PF VACCINE 0.5ML SYRINGE (90686) IM ONE (19:00)
[2018-04-04] MEDS: RAMELTEON 8 MG TAB (ROZEREM) PO SCH (21:55)
[2018-04-04] MEDS: PHENYTOIN ER 100 MG CAP PO SCH (21:55)
[2018-04-04] MEDS: ACETAMINOPHEN TAB 650MG DOSE (2X325MG) PO PRN (21:56)
[2018-04-05 06:00] VITALS: BP 125/74
[2018-04-05] MEDS: VITAMIN D 1,000 INTERNATIONAL UNITS TABLET PO SCH (07:31)
[2018-04-05 07:32] VITALS: BP 125/74
[2018-04-05] MEDS: FAMOTIDINE 20 MG TAB PO SCH (07:32)
[2018-04-05] MEDS: METOPROLOL TART 12.5 MG PER 1/2 TAB PO SCH (07:32)
[2018-04-05] MEDS: GABAPENTIN 300 MG CAP PO SCH (07:33)
[2018-04-05] MEDS: FONDAPARINUX SODIUM 2.5 MG/0.5 ML SYR (J1652 PER 0.5MG) SC SCH (07:33)
[2018-04-05] MEDS: BACLOFEN 5MG PER 1/2 TABLET PO SCH (07:33)
[2018-04-05] MEDS: METAMUCIL (PSYLLIUM) PACKET PO SCH (07:34)
== END 2018-04-05 07:50 | DRG 760 ==
LOC: M ED 14:43 → M ED INP 20:53 → M PCU 03-01 00:35 → OBSVTOIN 03-02 16:14 → M MS4PR 03-02 20:32 → M MS5PR 03-03 19:00
PROVIDERS: ADMIT Internal Medicine; ATTEND Internal Medicine
DX: R45.1 Restlessness and agitation (principal); G72.81 Critical illness myopathy; G82.50 Quadriplegia, unspecified; G93.1 Anoxic brain damage, not elsewhere classified; G40.909 Epilepsy, unspecified, not intractable, without status epilepticus; D75.82 Heparin induced thrombocytopenia (HIT); E55.9 Vitamin D deficiency, unspecified; G47.00 Insomnia, unspecified; R46.89 Other symptoms and signs involving appearance and behavior; I10 Essential (primary) hypertension; G93.0 Cerebral cysts; D64.9 Anemia, unspecified; R74.0 Nonspecific elevation of levels of transaminase and lactic acid dehydrogenase [LDH]; M21.371 Foot drop, right foot; M21.372 Foot drop, left foot; Z88.8 Allergy status to other drugs, medicaments and biological substances; Z79.899 Other long term (current) drug therapy